=== PATIENT | male | born 1990 | race Caucasian/White ===

== ENCOUNTER 2016-07-26 16:42 | Emergency (ER) | payer MEDICAID, OTHER ==
[~2016-07-26] VITALS: Ht 167.6 cm; Wt 59.0 kg
--- NOTE | 2016-07-26 16:42 | NUR ---
Patient BIBA [facility], transferred to bed 4. RN evaluating patient at bedside.
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
[2016-07-26 17:06] VITALS: BP 147/127
[2016-07-26] MEDS ORDERED: NACL 0.9% 1,000 ML IV ONE (18:25)
[2016-07-26] MEDS ORDERED: ONDANSETRON 4 MG/2 ML VIAL IVP ONE ×2 (18:25→19:50)
[2016-07-26] MEDS ORDERED: POTASSIUM CHLORIDE 10 MEQ TABER PO ONE ×2 (19:40→19:50)
[2016-07-26 20:19] VITALS: BP 132/88
--- NOTE | 2016-07-26 20:19 | NUR ---
Patient discharged with v/s stable. Written and verbal after care instructions given and explained. Patient alert, oriented and verbalized understanding of instructions. Ambulatory with steady gait. All questions addressed prior to discharge. ID band removed. Patient advised to follow up with PMD OR RETURN TO ER IF ONDITION WORSENS. Rx of ZOFRAN given. Patient educated on indication of medication including possible reaction and side effects. Opportunity to ask questions provided and answered.PT PICKED UP BY MOTHER.
== END 2016-07-26 20:19 | disposition home or self-care (01) ==
LOC: MED 16:42
DX: G40.909 Epilepsy, unspecified, not intractable, without status epilepticus (principal); R11.2 Nausea with vomiting, unspecified; F10.120 Alcohol abuse with intoxication, uncomplicated; R03.0 Elevated blood-pressure reading, without diagnosis of hypertension; J45.909 Unspecified asthma, uncomplicated
CPT/HCPCS: 36415; 80053; 80305; 81002; 85025; 93005; 96361; 96374; 99285; G0480; G0482; J2405; J7030

== ENCOUNTER 2018-08-25 12:41 | Emergency (ER) | payer OTHER ==
[~2018-08-25] VITALS: Ht 149.9 cm; Wt 59.0 kg
--- NOTE | 2018-08-25 12:41 | NUR ---
Patient BIBA BLS, transferred to bed 8. RN evaluating patient at bedside.
[2018-08-25 12:46] VITALS: BP 107/72
--- NOTE | 2018-08-25 12:54 | NUR ---
c/o intermittent right testicular pain x 4 days---denies injury/trauma, no swelling or discoloration noted----ambulatory with steady gait
[2018-08-25] MEDS ORDERED: IBUPROFEN 600 MG TAB PO ONE (13:30)
[2018-08-25 13:48] LABS: APPEARANCE,URINE CLEAR (CLEAR); BILIRUBIN,URINE NEGATIVE (NEGATIVE); BLOOD, URINE NEGATIVE (NEGATIVE); COLOR,URINE YELLOW (YELLOW); LEUKOCYTE ESTERASE ,URINE NEGATIVE (NEGATIVE); NITRITE, URINE NEGATIVE (NEGATIVE); UGLUCOSE NEGATIVE (NEGATIVE)
--- NOTE | 2018-08-25 14:45 | NUR ---
BEDSIDE ULTRASOUND COMPLETED
[2018-08-25 15:58] VITALS: BP 110/71
--- NOTE | 2018-08-25 15:59 | NUR ---
Patient discharged with v/s stable. Written and verbal after care instructions given and explained. Patient alert, oriented and verbalized understanding of instructions. All questions addressed prior to discharge. ID band removed. Patient advised to follow up with PMD. Rx of CLOTRIMAZOLE AND CLINDAMYCIN given. Patient educated on indication of medication including possible reaction and side effects. Opportunity to ask questions provided and answered.
[2018-08-28 06:09] LABS: CHLAMYDIA TRACHOMATIS AMP DNA Negative (Negative)
== END 2018-08-25 15:55 | disposition home or self-care (01) ==
LOC: MED 12:41
DX: N49.2 Inflammatory disorders of scrotum (principal); N50.89 Other specified disorders of the male genital organs
CPT/HCPCS: 36415; 76870; 81003; 87086; 87491; 99284; Q0092; 81002